=== PATIENT | male | born 1995 | race Caucasian/White ===

== ENCOUNTER 2019-06-17 11:48 | Emergency (ER) | payer SELFPAY ==
[~2019-06-17] VITALS: Ht 165.1 cm; Wt 56.8 kg
[2019-06-17 13:25] VITALS: BP 110/75
[2019-06-17] MEDS ORDERED: HydrOXYzine PAMOATE 25 MG CAPSULE PO ONE (14:00)
== END 2019-06-17 14:22 | disposition home or self-care (01) ==
LOC: EMS 12:05
DX: L98.8 Other specified disorders of the skin and subcutaneous tissue (principal); F12.90 Cannabis use, unspecified, uncomplicated

== ENCOUNTER 2020-02-12 16:35 | Emergency (ER) | payer MEDICAID, OTHER ==
[~2020-02-12] VITALS: Ht 167.6 cm; Wt 63.6 kg
[2020-02-12 16:39] VITALS: BP 126/62
[2020-02-12] MEDS ORDERED: IBUPROFEN 800 MG TABLET PO ONE (17:45)
== END 2020-02-12 18:06 | disposition home or self-care (01) ==
LOC: EMS 16:35
DX: S61.211A Laceration without foreign body of left index finger without damage to nail, initial encounter (principal); F12.90 Cannabis use, unspecified, uncomplicated; W26.0XXA Contact with knife, initial encounter; Y93.89 Activity, other specified; Y92.89 Other specified places as the place of occurrence of the external cause; Y99.8 Other external cause status
CPT/HCPCS: 12001; Z7502; Z7610